=== PATIENT | female | born 1965 | race Caucasian/White ===

== ENCOUNTER 2018-06-20 14:27 | Emergency (ER) | payer SELFPAY ==
[~2018-06-20] VITALS: Ht 160 cm; Wt 75.0 kg
[2018-06-20 14:31] VITALS: BP 154/78; PULSE 79; RESP 20; Ht 160 cm; Wt 75.0 kg
--- NOTE | 2018-06-20 18:28 | ERD ---
ER Documentation Chief Complaint Chief Complaint LT CHEST INTERMITTENT PAIN RADIATES TO LEFT ARM [id number] HPI This is a 52-year-old female presents for evaluation of chest pain that radiates to left arm. Patient states that she went to an outpatient clinic, where she had a steroid injection for her back, and shortly thereafter felt this chest pain and discomfort that lasted about 15 minutes and self resolved. She states that she has gotten these symptoms before in the past when when she has received steroid injections. She denies fever, denies shortness of breath, she has no history of hyperlipidemia, no history of diabetes, no history of coronary disease per ROS All systems reviewed and are negative except as per history of present illness. Medications Home Meds No Active Prescriptions or Reported Meds Allergies Allergies: Coded Allergies: No Known Allergy (Unverified , 06/20/18) Physical Exam Vitals Vital Signs Date Temp Pulse Resp B/P (MAP) Pulse Ox O2 O2 Flow FiO2 Time Delivery Rate 06/20/18 98.8 79 20 154/78 97 14:31 (103) Physical Exam Const: No acute distress Head: Atraumatic Eyes: Normal Conjunctiva ENT: Normal External Ears, Nose and Mouth. Neck: Full range of motion. No meningismus. Resp: Clear to auscultation bilaterally Cardio: Regular rate and rhythm, no murmurs Abd: Soft, non tender, non distended. Normal bowel sounds Skin: No petechiae or rashes Back: No midline or flank tenderness Ext: No cyanosis, or edema Neur: Awake and alert Psych: Normal Mood and Affect Result Diagram: 06/20/18 1654 06/20/18 1654 Results 24 hrs Laboratory Tests Test 06/20/18 16:54 White Blood Count 7.7 10^3/ul Red Blood Count 4.41 10^6/ul Hemoglobin 12.1 g/dl Hematocrit 38.9 % Mean Corpuscular Volume 88.2 fl Mean Corpuscular Hemoglobin 27.4 pg Mean Corpuscular Hemoglobin Concent 31.1 g/dl Red Cell Distribution Width 13.3 % Platelet Count 328 10^3/UL Mean Platelet Volume 9.7 fl Immature Granulocytes % 0.400 % Neutrophils % 83.7 % Lymphocytes % 14.5 % Monocytes % 1.0 % Eosinophils % 0.1 % Basophils % 0.3 % Nucleated Red Blood Cells % 0.0 /100WBC Immature Granulocytes # 0.030 10^3/ul Neutrophils # 6.5 10^3/ul Lymphocytes # 1.1 10^3/ul Monocytes # 0.1 10^3/ul Eosinophils # 0.0 10^3/ul Basophils # 0.0 10^3/ul Nucleated Red Blood Cells # 0.0 10^3/ul Prothrombin Time 12.3 Sec Prothrombin Time Ratio 1.0 INR International Normalized Ratio 0.90 Sodium Level 138 mmol/L Potassium Level 4.0 mmol/L Chloride Level 107 mmol/L Carbon Dioxide Level 24 mmol/L Anion Gap 7 Blood Urea Nitrogen 12 mg/dl Creatinine 0.46 mg/dl Est Glomerular Filtrat Rate mL/min > 60 mL/min Glucose Level 136 mg/dl Calcium Level 9.8 mg/dl Total Bilirubin 0.1 mg/dl Direct Bilirubin 0.00 mg/dl Indirect Bilirubin 0.1 mg/dl Aspartate Amino Transf (AST/SGOT) 31 IU/L Alanine Aminotransferase (ALT/SGPT) 26 IU/L Alkaline Phosphatase 136 IU/L Troponin I < 0.012 ng/ml Total Protein 8.5 g/dl Albumin 4.5 g/dl Globulin 4.00 g/dl Albumin/Globulin Ratio 1.12 Procedures/MDM 52-year-old female presents for evaluation of chest pain in the setting of recent steroid injection. This is a well-appearing nontoxic female in no acute distress, her EKG showed normal sinus rhythm with no evidence of acute ischemia, her cardiac workup was negative, including troponin, chest x-ray showed no acute findings, have a low suspicion for acute coronary syndrome, additionally her symptoms occurred greater than 6 hours ago with a negative troponin, her heart score places her at low risk, I discussed this with the patient, and she will follow-up with her primary care doctor, in order to evaluate for further cardiac testing as needed. I do not suspect pneumothorax or aortic dissection, at discharge the patient was in no acute distress EKG: Rate/Rhythm: Normal Sinus Rhythm QRS, ST, T-waves: No changes consistent w/ acute ischemia Impression: No evidence of ischemia or arrhythmia Chest X-ray 1V Interpreted by me: Soft Tissue: No acute abnormalities Bones: No acute abnormalities Mediastinum/Cardiac Silhouette/Lungs: No acute abnormalities Departure Diagnosis: Primary Impression: Chest pain Chest pain type: unspecified Qualified Codes: R07.9 - Chest pain, unspecified Condition: SHY Lawrence MD Jun 20, 2018 18:28
== END 2018-06-20 18:40 | disposition home or self-care (01) ==
LOC: E/R 14:27
DX: R07.9 Chest pain, unspecified (principal)
CPT/HCPCS: 71045; 80053; 84484; 85025; 85610; 93005